=== PATIENT | male | born 1995 | race Two or more races ===

== ENCOUNTER 2016-06-02 11:24 | Emergency (ER) | payer OTHER ==
[2016-06-02 11:44] VITALS: BP 131/83; PULSE 115; RESP 16; O2SAT 99
--- NOTE | 2016-06-02 12:22 | ED.REPORT ---
HPI-Extremity Problem Upper Date of Service Jun 02, 2016 ED Provider: Jerrell Estrada MD Pt is a 20 y/o male presenting to the ED due to right hand injury onset prior to arrival. The patient was repairing something at his house and got his right hand caught in a door when it was closed on it. Most of his pain is located at the proximal 2nd finger. He denies numbness, weakness, any other site of injury. TDAP status unknown. Nursing Notes Stated Complaint: RIGHT HAND INJURY Chief Complaint: Extremity Trauma Nursing Notes Reviewed: Yes Allergies: Coded Allergies: No Known Allergies (Unverified , 06/02/16) General Time Seen by MD: 11:47 Chief Complaint Hand injury right Hx Obtained From: Patient Arrived By: Walk-in Onset Occurred: Just prior to arrival Symptom Duration: Since onset Location: : Hand right Quality: Painful Severity: Current: Moderate Severity: Maximum: Moderate Similar Sx Previous: No Past Medical History Past Medical History Denies Past Surgical History None reported Smoking History Unknown if Ever Smoker Ambulatory Status Independent Review of Systems Musculoskeletal: Reports: Extremity pain Neurologic: Denies: Numbness, Weakness Complete sys rev & neg: except as marked. Physical Exam Initial Vital Signs Vital Signs (First) Date Time Temp Pulse Resp B/P Pulse Ox O2 Delivery O2 Flow Rate FiO2 06/02/16 11:44 36.8 115 16 131/83 99 Room Air Initial VS: Reviewed Head / Eyes: Atraumatic, Normocephalic, PERRL ENT: Mucous membranes moist, Conjunctiva normal, No scleral icterus Neck: Supple, Full range of motion Respiratory: No respiratory distress Cardiovascular: Intact distal pulses Abdomen / GI: Soft, No distention Skin: Warm, Dry, No cyanosis Neurologic: Alert, Oriented, Nonfocal Psychiatric: Mood/affect normal, Behavior normal, Normal thought content General/Constitutional: Awake, Alert, No acute distress, Well appearing, Cooperative, Not toxic appearing Upper Extremity / MS: Full range of motion, No erythema, No deformity, Neurologic intact, Vascular intact, No ligamentous injury, Tendon function NL 1 cm superfical curvilinear abrasion over right hand just proximal to second MCP joint. Tender over 2nd MCP joint and proximal phalanx Interpretation & Diagnostics X-Ray Interpretation Xray Interpretation: IMPRESSION: No displaced fracture seen. If there is continued pain, followup exam or additional imaging such as MRI or CT could be performed for further assessment. Dictated by: Lex PHAM Interpreted: Oscar Berry MD on 06/02/2016 at 14:00 Transcribed by: SACHIN on 06/02/2016 at 14:00 Study Performed: 3 view X-Ray Ordered: Hand right Interpretation / Wet Read by: Interpret - Radiologist Re-Eval/Medical Decision Med Decision/Clinical Course 20-year-old male with abrasion to right hand after getting caught in door. Tender over right index finger proximal phalanx. X-ray no evidence of fracture. Patient is unsure of he is up-to-date on his tetanus but does not want a tetanus shot and says he will follow-up with his primary doctor today to determine if he is up-to-date on his tetanus. Patient left without notifying us prior to x-ray results and prior to receiving discharge information. Re-Evaluation/Progress : Time of Eval: 14:20 Re-Evaluation/Progress Note: Pt attempted to be rechecked. He is no longer in the room. His xray is negative an he was appropriate for discharge. Counseled Regarding: Diagnosis, Need for follow-up, When/why to return to ED Discharge & Departure Impression: Primary Impression: Abrasion of right hand Encounter type: initial encounter Qualified Code: S60.511A - Abrasion of right hand, initial encounter Additional Impression: Injury of right hand Encounter type: initial encounter Qualified Code: S69.91XA - Unspecified injury of right wrist, hand and finger(s), initial encounter Disposition: Home Discharge Condition All VS Reviewed: Yes Condition: Stable Additional Instructions: Patient left prior to official discharge. Referrals: Roland Schmidt MD (PCP) Scribe Attestation Portions of this note were transcribed by Prosper Brar. I, Dr. Estrada personally performed the history, physical exam and medical decision-making; I reviewed and confirmed the accuracy of the information in the transcribed note. Signed by Estiven Abarca, 06/02/16 - [phone] copies to: Roland Schmidt MD, Ben M MD Jun 02, 2016 12:22 PROSPER BRAR Jun 02, 2016 12:28
--- NOTE | 2016-06-02 14:01 | DRSVH ---
PROCEDURE: X-RAY RIGHT HAND, MINIMUM THREE VIEWS ([id number]) INDICATIONS: R hand trauma TECHNIQUE: 3 views of the hand(s) acquired. COMPARISON: None. FINDINGS: Bones: No fractures or dislocations. Carpal bones are normally aligned. No suspicious bony lesions . Soft tissues: No suspicious soft tissue calcifications. IMPRESSION: No displaced fracture seen. If there is continued pain, followup exam or additional carlos ging such as MRI or CT could be performed for further assessment. Dictated by: Lex Bradley RRLisa Interpreted: Oscar Berry MD on 06/02/2016 at 14:00 Transcribed by: SACHIN on 06/02/2016 at 14:00 Approved by: Oscar Berry M.D. on 06/03/2016 at 8:32
== END 2016-06-02 14:24 | disposition home or self-care (01) ==
LOC: SED 11:24
DX: S60.511A Abrasion of right hand, initial encounter (principal); W23.0XXA Caught, crushed, jammed, or pinched between moving objects, initial encounter; Y93.89 Activity, other specified; Y99.8 Other external cause status; Y92.009 Unspecified place in unspecified non-institutional (private) residence as the place of occurrence of the external cause